=== PATIENT | male | born 1985 | race African-American/Black ===

== ENCOUNTER 2020-05-14 17:15 | Emergency (ER) | payer SELFPAY ==
[~2020-05-14] VITALS: Ht 182.9 cm; Wt 91.0 kg
[2020-05-14 18:08] VITALS: BP 142/78
--- NOTE | 2020-05-14 18:17 | PHYS DOC ---
Past Medical History Past Medical History: No Pertinent History Past Surgical History: Other Additional Past Surgical Histo: RIGHT FEMUR SX Smoking Status: Current Some Day Smoker Additional Information: 2 CIGS EVERY 2 DAYS Alcohol Use: Occasionally General Adult EDM: Chief Complaint: WRIST PAIN HPI: HPI: Patient is a 34 year old male who presented to ER with left wrist pain for the last 5 days. The pain is worse whenever he flex or extend his left wrist. Patient lifted heavy boxes at work constantly. He felt like he overworked it. Patient denied injury. Patient works for [employer]. Review of Systems: Review of Systems: Constitutional: Denies fever or chills. [] Eyes: Denies change in visual acuity. [] HENT: Denies nasal congestion or sore throat. [] Respiratory: Denies cough or shortness of breath. [] Cardiovascular: Denies chest pain or edema. [] GI: Denies abdominal pain, nausea, vomiting, bloody stools or diarrhea. [] : Denies dysuria. [] Musculoskeletal: Positive for left wrist pain. Integument: Denies rash. [] Neurologic: Denies headache, focal weakness or sensory changes. [] Endocrine: Denies polyuria or polydipsia. [] Lymphatic: Denies swollen glands. [] Psychiatric: Denies depression or anxiety. [] Heart Score: Risk Factors: Risk Factors: DM, Current or recent (<one month) smoker, HTN, HLP, family hi story of CAD, obesity. Risk Scores: Score 0 - 3: 2.5% MACE over next 6 weeks - Discharge Home Score 4 - 6: 20.3% MACE over next 6 weeks - Admit for Clinical Observation Score 7 - 10: 72.7% MACE over next 6 weeks - Early Invasive Strategies Allergies: Allergies: Allergies Coded Allergies Type Severity Reaction Last Updated Verified No Known Drug Allergies 05/14/20 No Physical Exam: PE: Constitutional: Well developed, well nourished, no acute distress, non-toxic appearance. [] HENT: Normocephalic, atraumatic, bilateral external ears normal, oropharynx moist, no oral exudates, nose normal. [] Eyes: PERRLA, EOMI, conjunctiva normal, no discharge. [] Neck: Normal range of motion, no tenderness, supple, no stridor. [] Cardiovascular:Heart rate regular rhythm, no murmur [] Lungs & Thorax: Bilateral breath sounds clear to auscultation [] Abdomen: Bowel sounds normal, soft, no tenderness, no masses, no pulsatile masses. [] Skin: Warm, dry, no erythema, no rash. [] Back: No tenderness, no CVA tenderness. [] Extremities: there is no swelling or deformity of left wrist. There is full range of motion, no bony tenderness, no anatomic snuff box tenderness to palpation. Neurologic: Alert and oriented X 3, normal motor function, normal sensory function, no focal deficits noted. [] Psychologic: Affect normal, judgement normal, mood normal. [] Current Patient Data: Vital Signs: Vital Signs Date Time Temp Pulse Resp B/P (MAP) Pulse Ox O2 Delivery O2 Flow Rate FiO2 05/14/20 18:08 97.8 54 18 142/78 (99) 99 Room Air 97.8 EKG: EKG: [] Radiology/Procedures: Radiology/Procedures: xray of left wrist: no dislocation, no fracture Course & Med Decision Making: Course & Med Decision Making Pertinent Labs and Imaging studies reviewed. (See chart for details) [] Dragon Disclaimer: DragSpecific Media Disclaimer: This electronic medical record was generated, in whole or in part, using a voice recognition dictation system. Departure Departure Impression: Primary Impression: Left wrist sprain Disposition: 01 DC HOME SELF CARE/HOMELESS Condition: STABLE Referrals: NO PCP (PCP) GREG STEVENS MD please call this orthopedic doctor for outpatient follow up. Patient Instructions: Wrist Sprain with [facility] Additional Instructions: Thank you for visiting our Emergency Department. We appreciate you trusting us with your care. If any additional problems come up don't hesitate to return to visit us. Please follow up with your primary care provider so they can plan additional care if needed and know about the problem that you had. If symptoms worsen come back to the Emergency Department. Any concerning symptoms that start such as chest pain, shortness of air, weakness or numbness on one side of the body, running high fevers or any other concerning symptoms return to the ER. RADHA HOLLIDAY DO May 14, 2020 18:17
--- NOTE | 2020-05-14 19:33 | RAD ---
PROCEDURE: WRIST 3V LEFT STUDY DATE: 05/14/2020 CLINICAL INDICATION / HISTORY: Reason: left wrist pain after lifting for 5 days / Spl. Instructions: / History: . TECHNIQUE: Left wrist 3 views. AP, lateral, oblique views. COMPARISON: None FINDINGS: The radiocarpal and intracarpal relationships are maintained. There is no fracture or dislocation. The bone density is normal. No soft tissue abnormality is seen. IMPRESSION: No acute osseous abnormality. Electronically signed by: Raysa Rothman MD (05/14/2020 7:30 PM) [facility] [place]
== END 2020-05-14 19:00 | disposition home or self-care (01) ==
LOC: ER 17:15 → EDBD 17:15 → ER 19:00
DX: S63.592A Other specified sprain of left wrist, initial encounter (principal); F17.210 Nicotine dependence, cigarettes, uncomplicated; Z98.890 Other specified postprocedural states; X50.0XXA Overexertion from strenuous movement or load, initial encounter; Y93.89 Activity, other specified; Y92.89 Other specified places as the place of occurrence of the external cause; Y99.8 Other external cause status
CPT/HCPCS: 73110; 99283